=== PATIENT | female | born 1995 | race Caucasian/White ===

== ENCOUNTER 2018-05-03 13:00 | Outpatient (RCR) | payer MEDICAID, SELFPAY | END 2018-05-28 14:33 | disposition home or self-care (01) | LOC: PT 13:00 | PROVIDERS: PCP Family Medicine; Visit Provider Orthopaedic Surgery Adult Reconstructive Orthopaedic Surgery | DX: S83.512A Sprain of anterior cruciate ligament of left knee, initial encounter (principal) | CPT/HCPCS: 97110; 97163 ==

== ENCOUNTER 2025-04-23 19:11 | Emergency (ER) | payer SELFPAY ==
[2025-04-23 19:22] VITALS: BP 186/74; PULSE 119; RESP 18; TEMP 36.9; O2SAT 99; BMI 38.7
[2025-04-23 19:26] VITALS: BP 186/74; PULSE 119; RESP 18; TEMP 36.9; O2SAT 98
--- NOTE | 2025-04-23 19:35 | CT_ITS ---
PROCEDURE INFORMATION: Exam: CT Abdomen And Pelvis With Contrast Exam date and time: 04/23/2025 8:11 PM Age: 29 years old Clinical indication: Abdominal pain; Additional info: Luq pain, after creat/ hcg TECHNIQUE: Imaging protocol: Computed tomography of the abdomen and pelvis with contrast. Radiation optimization: All CT scans at this facility use at least one of these dose optimization techniques: automated exposure control; mA and/or kV adjustment per patient size (includes targeted exams where dose is matched to clinical indication); or iterative reconstruction. Contrast material: ISOVUE; Contrast volume: 75 ml; Contrast route: IV; COMPARISON: CT - [id number] CT abdomen pelvis wo con 06/30/2018 4:40 PM FINDINGS: Lower thorax: Calcified granuloma within RIGHT lower lobe. Calcified hilar lymph nodes. Diaphragm: Elevated LEFT hemidiaphragm. Liver: Unremarkable. Gallbladder and biliary ducts: No calcified stones. No ductal dilation. Pancreas: Unremarkable. No ductal dilation. Spleen: Few calcifications. Mildly enlarged, stable. Adrenal glands: No mass. Kidneys and ureters: Unremarkable. No significant hydronephrosis. Stomach and bowel: No definite mural thickening. No obstruction. Appendix: Normal caliber. No inflammation. Intraperitoneal space: Trace free fluid within pelvis. No free air. Vasculature: Unremarkable. No aneurysm. Lymph nodes: No pathologically enlarged lymph nodes. Urinary bladder: Unremarkable. Reproductive: Probable 2.0 cm follicle within RIGHT ovary. Bones/joints: No acute fracture. Soft tissues: Tiny umbilical hernia containing fat. IMPRESSION: No definite acute intraabdominal abnormality.
[2025-04-23 19:40] LABS: Microscopic, Urine URINE MICROSCOPIC (MICROSCOPIC)
[2025-04-23 19:43] LABS: Hematocrit 45.0 % (37.0-47.0); Hemoglobin 15.3 g/dL (12.2-16.2); Immature Granulocytes % 0.2 %; Mean Corpuscular HGB Conc 34.0 g/dL (31.8-35.4); Mean Corpuscular Hemoglobin 28.3 pg (27.0-31.2); Mean Corpuscular Volume 83.2 fl (81-99); Nucleated Red Blood Cells % 0 %; Platelet Count 352 K/mm3 (142-424); Red Blood Count 5.41 M/mm3 (4.20-5.40); Red Cell Distribution Width-SD 36.7 fL; White Blood Count 9.7 K/mm3 (4.8-10.8)
[2025-04-23 19:44] LABS: Bilirubin,Urine Negative (Negative); Color,Urine YELLOW (Yellow); Glucose,Urine (UA) Negative (Negative); Ketones,Urine Negative (Negative); Leukocyte Esterase,Urine Negative (Negative); PH,Urine 7.0 (5.0-8.5); Protein,Urine Negative (Negative); Specific Gravity, Urine 1.010 (1.005-1.030); Urobilinogen,Urine 0.2 EU/dl (0.2)
[2025-04-23 19:47] LABS: Urine Pregnancy, HCG Qual. Negative (Negative)
[2025-04-23 19:47] LABS: Albumin Level 4.9 g/dl (3.5-5.0); Chloride 102 mmol/L (98-107); Potassium 3.7 mmoL/L (3.5-5.1); Sodium 139 mmol/L (136-145)
[2025-04-23 19:50] LABS: Alanine Aminotransferase 14 U/L (12-78); Albumin/Globulin Ratio 1.3 (1.1-1.8); Alkaline Phosphatase 42 U/L (38-126); Anion Gap 13.7 mEq/L (5-15); Aspartate Amino Transferase 34 U/L (14-36); Bilirubin,Total 1.0 mg/dl (0.2-1.3); Blood Urea Nitrogen 7 mg/dl (7-17); Carbon Dioxide 27 mmol/L (22.0-30.0); Creatinine Clearance Estimated 193 mL/min (50-200); Creatinine,Serum 0.80 mg/dl (0.52-1.04); Estimated Glomerular Filt Rate 86 ml/min (>60); GFR (African American) 104 ML/MIN (>60); Globulin 3.9 g/dL (1.3-3.2); Lipase 105 U/L (23-300); Total Protein,Serum 8.8 g/dl (6.3-8.2)
[2025-04-23 19:51] LABS: Calcium 9.4 mg/dl (8.4-10.2); Glucose 90 mg/dl (74-100)
[2025-04-23] MEDS: ONDANSETRON 4MG/2ML VIAL 4 MG IV (20:00)
[2025-04-23] MEDS: 0.9 % SODIUM CHLORIDE 1000ML 1,000 ML 999 ML IV (20:00)
[2025-04-23 20:03] LABS: Bacteria,Urine Trace /lpf
[2025-04-23] MEDS: IOPAMIDOL-370 (76%);100ML BOTTLE 75 ML IV (20:15)
[2025-04-23] MEDS: SODIUM CHLORIDE 0.9% 10ML SYR (RAD ONLY) 10 ML IV (20:15)
--- NOTE | 2025-04-23 20:25 | ED_ITS ---
<Statement entered by Hillary Adler DO - 04/26/25 22:22> I was consulted by the OCTAVIO, and we discussed the complexity of problems being addressed. I approve the treatment and management plan for this patient's care in the emergency department, thus performing a substantial portion of the medical decision making. Hillary Adler DO Discharge Plan Disposition Patient Disposition: Home, Self-Care Prescriptions Prescriptions: New sucralfate [Carafate] 1 gram tablet 1 g PO QID 5 Days Qty: 20 0RF Rx Instructions: Take before meals and at bedtime. Do not take within 30 minutes of pantoprazole. No Action medroxyprogesterone 150 mg/mL suspension 150 mg IM [id number] Qty: 1 4RF sertraline [Zoloft] 50 mg tablet 50 mg PO DAILY prednisone 50 MG tablet 50 mg PO DAILY 5 Days Qty: 5 0RF ketorolac 10 MG tablet 10 mg PO Q6H 5 Days Qty: 20 0RF Referrals Follow up/Referrals: Lashay Cavanaugh APRN [Primary Care Provider, Medical] - See instructions Escobar Robin II, MD [Staff Physician, Gastroenterology] - See instructions Activity Restrictions/Add. Instructions Additional Instructions/Restrictions: You were seen with abdominal pain with eating. Your labs and imaging did not show a cause for this. Please follow up with the GI doctor. Clinical Impressions Clinical Impression: Abdominal pain Instructions Patient Instructions: DI for Acute Abdominal Pain Print Language Print Language: Micronesian Discharge ED Provider: Hillary Adler General Adult HPI General Chief complaint: Abdominal Pain Stated complaint: Lower Abdominal Pain;Nausea Time Seen by Provider: 04/23/25 19:19 Mode of Arrival: Ambulatory Source of Information: Patient and Spouse Description of Symptoms (Recalled from ER Triage Doc. by RN): patient comes to the emergency department to be evaluated for left lower quadrant abdominal pain. she stated at times that it radiates to her left flank. she is rating her pain at a 5/10 currently but does endore worsening pain with movement. patient stated this has been happening since thursday and also stated a history of sigmoid colon inflammation approximately one year ago. History of Present Illness HPI narrative: Patient presents with generalized abdominal pain. She reports that her pain is worse on the left side and radiates into the left flank. She reports a history of a sigmoid colon infection with similar symptoms. She reports nausea without vomiting. Denies any fever. Denies any urinary symptoms. Denies any blood in the stool. She reports that she has had some constipation. She has tried MiraLAX at home today. Denies any diarrhea. MD complaint: Abdominal pain Onset (ago): day(s) (Thursday ) Location: abdomen Radiation: flank Severity: moderate Consistency: constant Relieving factors: none Exacerbating factors: none Associated symptoms: nausea/vomiting; negative fever/chills Treatments prior to arrival: other (MiraLAX) Related Data Home Medications ?Medication ?Instructions ?Recorded ?Confirmed sertraline 50 mg tablet (Zoloft) 50 mg PO DAILY 05/02/19 Previous Rx's ?Medication ?Instructions ?Recorded medroxyprogesterone 150 mg/mL 150 mg IM [id number] control 05/02/19 intramuscular suspension #1 mL ketorolac 10 mg tablet 10 mg PO Q6H 5 days #20 tabs 05/16/19 prednisone 50 mg tablet 50 mg PO DAILY 5 days #5 tab s 05/16/19 sucralfate 1 gram tablet (Carafate) 1 g PO QID 5 days #20 tabs 04/23/25 Allergies Allergy/AdvReac Type Severity Reaction Status Date / Time sulfamethoxazole (From Allergy Intermediate Verified 05/02/19 09:49 Septra) trimethoprim (From Mayra) Allergy Intermediate Verified 05/02/19 09:49 [facility] Disclaimer: The information contained in this section may have been updated after the patient was seen, as this information can be updated by other users. Social History Smoking Status: Never smoker alcohol intake: never substance use type: denies use current occupational status: employed and student Travel in the last 8 weeks?: None Have you lived/traveled outside [place] in past 30 days?: No Contact w/someone who lives/traveled outside [place] past 30 days?: No Exposure to someone with infectious disease in past 14 days?: No Do you have a fever (greater than 100.4 F or 38 C)?: No Have you tested positive for COVID-19?: No Exposed to someone with COVID-19 in past 14 days?: No Do you have a sore throat?: No Do you have a cough?: No Do you have any weakness?: No Do you have any diarrhea?: No Are you experiencing any unusual bleeding?: No Do you have any muscle aches/pain?: No Do you have any abdominal pain?: No Are you experiencing loss of taste or smell?: No Other Medical History Have you received the Flu Vaccine for this season: No Have you received the Pneumonia Vaccine: No ROS Obtained: Yes Systems reviewed as appropriate & no additional complaints except as documented Physical Exam General General appearance: alert and in no apparent distress Head Head exam: atraumatic and normocephalic Eye Eye exam: Present normal appearance and EOMI Chest Chest inspection: Present symmetric chest wall rise Respiratory Respiratory exam: Present normal lung sounds bilaterally; Absent wheezes or stridor Cardiovascular Cardiovascular exam: Present regular rate and normal rhythm; Absent systolic murmur Abdominal Exam Abdominal exam: Present soft and tenderness (Left upper quadrant); Absent distention, guarding or rebound Extremities Exam Extremities exam: Present full ROM Neurological Exam Neurological exam: Present alert and oriented X3 Psychiatric Psychiatric exam: Present normal affect and normal mood Skin Skin exam: Present warm, dry and intact Medical Decision Making Medical Records Screening: Per USPSTF and CDC recommendations, given the prevalence of disease in our region, it is our hospital?s policy to screen for HIV and viral Hepatitis for all patients aged 18 and over and those with ongoing risk factors. [place] Inquiry Pt receiving controlled substance: No Vital Signs: 04/23/25 19:22 04/23/25 19:26 04/23/25 20:54 Temperature 98.5 F 98.5 F Temperature Source Oral Temporal Artery Scan Pulse Rate 119 H 85 Pulse Rate [Left] 119 H Respiratory Rate 18 18 Blood Pressure 186/74 H 134/84 Blood Pressure [Left Arm] 186/74 H Blood Pressure Mean [Left Arm] 111 Blood Pressure Source Automatic Cuff Blood Pressure Source [Left Arm] Automatic Cuff Blood Pressure Position Sitting Blood Pressure Position [Left Arm] Sitting 02 Sat by Pulse Oximetry 99 98 98 Oxygen Delivery Method Room Air Room Air 04/23/25 21:00 Temperature Temperature Source Pulse Rate 73 Pulse Rate [Left] Respiratory Rate Blood Pressure 122/81 Blood Pressure [Left Arm] Blood Pressure Mean [Left Arm] Blood Pressure Source Blood Pressure Source [Left Arm] Blood Pressure Position Blood Pressure Position [Left Arm] 02 Sat by Pulse Oximetry 99 Oxygen Delivery Method Lab Data Lab Results 04/23/25 19:18: Urine Color Yellow, Urine Appearance Clear, Urine pH 7.0, Ur Specific [place] 1.010, Urine Protein Negative, Urine Glucose (UA) Negative, Urine Ketones Negative, Urine Blood Trace-l, Urine Nitrate Negative, Urine Bilirubin Negative, Urine Urobilinogen 0.2, Ur Leukocyte Esterase Negative, Urine RBC None, Urine WBC 3-5, Ur Squamous Epith Cells 5-10, Urine Bacteria Trace, Urine HCG, Qual Negative 04/23/25 19:25: WBC 9.7, RBC 5.41 H, Hgb 15.3, Hct 45.0, MCV 83.2, MCH 28.3, MCHC 34.0, RDW 12.1, Plt Count 352, MPV 9.0, Neut % (Auto) 65.2, Lymph % (Auto) 27.2, [place] % (Auto) 6.1, Eos % (Auto) 0.8, Baso % (Auto) 0.5, Neut # (Auto) 6.3, Lymph # (Auto) 2.6, [place] # (Auto) 0.6, Eos # (Auto) 0.1, Baso # (Auto) 0.1, Sodium 139, Potassium 3.7, Chloride 102, Carbon Dioxide 27, Anion Gap 13.7, BUN 7, Creatinine 0.80, Estimated Creat Clear 193, Estimated GFR 86, Est GFR ( Amer) 104, Glucose 90, Calcium 9.4, Total Bilirubin 1.0, AST 34, ALT 14, Alkaline Phosphatase 42, Total Protein 8.8 H, Albumin 4.9, Globulin 3.9 H, Albumin/Globulin Ratio 1.3, Lipase 105 04/23/25 19:25 04/23/25 19:25 Orders (Tests/Meds): ED MEDICATIONS Generic Name Dose Route Start Last Admin Trade Name Freq PRN Reason Stop Dose Admin Sodium Chloride 10 ml 04/23/25 19:35 Sodium Chloride 0.9% 10ml Flush Syringe IV 05/23/25 19:34 NEEDED PRN Maintain IV Site Sodium Chloride 10 ml 04/23/25 20:14 04/23/25 20:15 Sodium Chloride 0.9% 10ml Syr (Rad Only) IV 05/23/25 20:13 10 ml NEEDED PRN Administration Maintain IV Site Discontinued Medications Generic Name Dose Route Start Last Admin Trade Name Freq PRN Reason Stop Dose Admin Sodium Chloride 1,000 mls @ 999 mls/hr 04/23/25 19:35 04/23/25 20:00 Sod Chlor 0.9% 1000ml Bag IV 04/23/25 20:35 999 mls/hr .Q1H1M ONE Administration Iopamidol 75 ml 04/23/25 20:14 04/23/25 20:15 Iopamidol-370 (76%);100ml Bottle IV 04/23/25 20:15 75 ml ONCE ONE Administration Ondansetron HCl 4 mg 04/23/25 19:36 04/23/25 20:00 Ondansetron 4mg/2ml Vial IV 04/23/25 19:37 4 mg ONCE ONE Administration ORDERS Category Date Time Status CT abdomen pelvis w con Stat Cat Scan 04/23/25 19:35 Completed CBC w/Auto Diff [Complete Blood Count Auto Diff] Stat Lab 04/23/25 19:25 Completed CMP [Comprehensive Metabolic Panel] Stat Lab 04/23/25 19:25 Completed Lipase Stat Lab 04/23/25 19:25 Completed Urinalysis and Microscopic Stat Lab 04/23/25 19:18 Completed Urine , HCG Qual. Stat Lab 04/23/25 19:18 Completed Urine Culture Stat Micro 04/23/25 21:23 Ordered Medical Decision Narrative: In summary patient is a 29-year-old female who presents the emergency department for evaluation of abdominal pain. Patient is tachycardic, hypertensive upon arrival, afebrile. Left upper quadrant tenderness. Differential diagnosis includes colitis, constipation, UTI, ureteral stone. Initial workup will be conducted with labs, urinalysis, CT abdomen pelvis. Initial inventions include IV fluids, soap. Initial workup reviewed by me unremarkable. Upon repeat evaluation patient is resting comfortable. Given this patient is appropriate for discharge home at this time with prescription for Carafate and referral to GI. She reports that she takes pantoprazole daily. Critical Care Critical Care Time Critical Care Time: No
[2025-04-23 20:54] VITALS: BP 134/84; PULSE 85; O2SAT 98
[2025-04-23 21:00] VITALS: BP 122/81; PULSE 73; O2SAT 99
--- NOTE | 2025-04-23 21:28 | PC.NURSE ---
sent 2nd urine to lab
[2025-04-23 21:48] VITALS: BP 122/81; PULSE 73; RESP 16; TEMP 36.6; O2SAT 98
== END 2025-04-23 21:52 | disposition home or self-care (01) ==
PROVIDERS: Physician Assistant; Emergency Provider Student in an Organized Health Care Education/Training Program; PCP Nurse Practitioner Family
DX: R10.84 Generalized abdominal pain (principal); R11.0 Nausea
CPT/HCPCS: 74177; 80053; 81001; 81025; 83690; 85025; 96361; 96374; 99285; J2405; J7030; Q9967